=== PATIENT | male | born 1955 | race Caucasian/White ===

== ENCOUNTER → 2016-09-28 | Outpatient (CLI) | payer BC ==
[~2016-09-28] MED LIST: ADULT LOW DOSE81 MG PO; ATIVAN0.5 MG PO; AUGMENTIN TAB875 MG PO; BRILINTA90 MG PO; BUMETANIDE1 MG PO; CORDARONE 200M200 MG PO; DULERA 200 MCG8.8 GM INH; ELIQUIS 5 MG TAB5 MG PO; ENSURE ORIGINA237 ML PO; ENTRESTO PO; FLUOXETINE HCL10 M1 PO; LASIX 40 MG TAB40 MG PO; LEVAQUIN TAB 2250 MG PO; LIPITOR TAB 2020 MG PO; LISINOPRIL5 MG PO; LOPRESSOR 25 MG25 MG PO; METOPROLOL TART25 MG PO; MYCOSTATIN CREA15 GM TOP; NITROSTAT0.4 MG SL; PLAVIX 75 MG TA75 MG PO; POTASSIUM CHLO20 ME1 PO; SPIRIVA HANDIH18 MCG INH; TESSALON PERLE100 MG PO; VISTARIL25 MG PO; ZANTAC150 MG PO; [UNRECOGNIZED DRUG - CODE] PO
== END ==
LOC: LAB 08:33
DX: Z51.81 Encounter for therapeutic drug level monitoring (principal); Z79.01 Long term (current) use of anticoagulants; I25.5 Ischemic cardiomyopathy
CPT/HCPCS: 36415; 85610; 85730

== ENCOUNTER → 2016-10-05 | Outpatient (CLI) | payer BC | LOC: LAB 11:43 | DX: Z51.81 Encounter for therapeutic drug level monitoring (principal); I25.5 Ischemic cardiomyopathy; Z79.01 Long term (current) use of anticoagulants | CPT/HCPCS: 36415; 85610; 85730 ==

== ENCOUNTER → 2016-10-08 | Outpatient (CLI) | payer BC | LOC: LAB 12:17 | DX: Z51.81 Encounter for therapeutic drug level monitoring (principal); I25.5 Ischemic cardiomyopathy; Z79.01 Long term (current) use of anticoagulants | CPT/HCPCS: 36415; 85610; 85730 ==

== ENCOUNTER → 2016-10-12 | Outpatient (CLI) | payer BC | LOC: LAB 12:45 | DX: Z51.81 Encounter for therapeutic drug level monitoring (principal); I25.5 Ischemic cardiomyopathy; Z79.01 Long term (current) use of anticoagulants | CPT/HCPCS: 36415; 85610; 85730 ==

== ENCOUNTER → 2016-10-19 | Outpatient (CLI) | payer BC | LOC: LAB 11:36 | DX: Z51.81 Encounter for therapeutic drug level monitoring (principal); I25.5 Ischemic cardiomyopathy; Z79.01 Long term (current) use of anticoagulants | CPT/HCPCS: 36415; 85610; 85730 ==

== ENCOUNTER → 2016-10-26 | Outpatient (CLI) | payer BC | LOC: LAB 10:19 | DX: Z51.81 Encounter for therapeutic drug level monitoring (principal); I25.5 Ischemic cardiomyopathy; Z79.01 Long term (current) use of anticoagulants | CPT/HCPCS: 36415; 85610; 85730 ==

== ENCOUNTER → 2016-11-02 | Outpatient (CLI) | payer BC | LOC: LAB 11:49 | DX: I25.5 Ischemic cardiomyopathy (principal) | CPT/HCPCS: 36415; 85610; 85730 ==

== ENCOUNTER → 2016-11-09 | Outpatient (CLI) | payer BC | LOC: LAB 11:08 | DX: Z51.81 Encounter for therapeutic drug level monitoring (principal); I25.5 Ischemic cardiomyopathy; Z95.811 Presence of heart assist device; Z79.01 Long term (current) use of anticoagulants | CPT/HCPCS: 36415; 85610; 85730 ==

== ENCOUNTER → 2016-11-16 | Outpatient (CLI) | payer BC | LOC: LAB 11:01 | DX: I25.5 Ischemic cardiomyopathy (principal) | CPT/HCPCS: 36415; 85610; 85730 ==

== ENCOUNTER → 2016-11-23 | Outpatient (CLI) | payer BC | LOC: LAB 10:53 | DX: Z51.81 Encounter for therapeutic drug level monitoring (principal); I25.5 Ischemic cardiomyopathy; Z79.01 Long term (current) use of anticoagulants | CPT/HCPCS: 36415; 85610; 85730 ==

== ENCOUNTER → 2016-11-30 | Outpatient (CLI) | payer BC | LOC: LAB 10:50 | DX: Z51.81 Encounter for therapeutic drug level monitoring (principal); I25.5 Ischemic cardiomyopathy; Z79.01 Long term (current) use of anticoagulants | CPT/HCPCS: 36415; 85610; 85730 ==

== ENCOUNTER → 2016-12-07 | Outpatient (CLI) | payer BC | LOC: LAB 10:10 | DX: Z51.81 Encounter for therapeutic drug level monitoring (principal); Z79.01 Long term (current) use of anticoagulants | CPT/HCPCS: 36415; 85610; 85730 ==

== ENCOUNTER → 2016-12-14 | Outpatient (CLI) | payer BC | LOC: LAB 10:21 | DX: Z51.81 Encounter for therapeutic drug level monitoring (principal); I25.5 Ischemic cardiomyopathy; Z79.01 Long term (current) use of anticoagulants | CPT/HCPCS: 36415; 85610; 85730 ==

== ENCOUNTER → 2016-12-21 | Outpatient (CLI) | payer BC | LOC: LAB 10:46 | DX: Z51.81 Encounter for therapeutic drug level monitoring (principal); I25.5 Ischemic cardiomyopathy; Z79.01 Long term (current) use of anticoagulants | CPT/HCPCS: 36415; 85610; 85730 ==

== ENCOUNTER → 2016-12-28 | Outpatient (CLI) | payer BC | LOC: LAB 11:36 | DX: I25.5 Ischemic cardiomyopathy (principal) | CPT/HCPCS: 36415; 85610; 85730 ==

== ENCOUNTER → 2016-12-31 | Outpatient (CLI) | payer BC | LOC: LAB 12:10 | DX: Z51.81 Encounter for therapeutic drug level monitoring (principal); I25.5 Ischemic cardiomyopathy; Z95.811 Presence of heart assist device; Z79.01 Long term (current) use of anticoagulants | CPT/HCPCS: 36415; 85610; 85730 ==

== ENCOUNTER → 2017-01-04 | Outpatient (CLI) | payer BC | LOC: LAB 11:46 | DX: I25.5 Ischemic cardiomyopathy (principal) | CPT/HCPCS: 36415; 85610; 85730 ==

== ENCOUNTER → 2017-01-11 | Outpatient (CLI) | payer BC | LOC: LAB 09:47 | DX: Z51.81 Encounter for therapeutic drug level monitoring (principal); I25.5 Ischemic cardiomyopathy; Z79.01 Long term (current) use of anticoagulants | CPT/HCPCS: 36415; 85610; 85730 ==

== ENCOUNTER → 2017-01-13 | Outpatient (CLI) | payer BC ==
[2017-01-13 15:11] LABS: BUN/CREATININE RATIO 26 (0-10)
== END ==
LOC: LAB 13:20
PROVIDERS: Internal Medicine
DX: I25.5 Ischemic cardiomyopathy (principal)
CPT/HCPCS: 36415; 80053; 83615

== ENCOUNTER → 2017-01-13 | Outpatient (CLI) | payer BC | LOC: LAB 10:52 | DX: Z51.81 Encounter for therapeutic drug level monitoring (principal); I25.5 Ischemic cardiomyopathy; Z79.01 Long term (current) use of anticoagulants | CPT/HCPCS: 36415; 85610; 85730 ==

== ENCOUNTER → 2017-01-18 | Outpatient (CLI) | payer BC | LOC: LAB 11:53 | DX: Z51.81 Encounter for therapeutic drug level monitoring (principal); I25.5 Ischemic cardiomyopathy; Z79.01 Long term (current) use of anticoagulants | CPT/HCPCS: 85610; 85730 ==

== ENCOUNTER → 2017-01-18 | Outpatient (CLI) | payer BC ==
[2017-01-18 12:28] LABS: BUN/CREATININE RATIO 23 (0-10)
== END ==
LOC: LAB 11:26
PROVIDERS: Internal Medicine
DX: I25.5 Ischemic cardiomyopathy (principal)
CPT/HCPCS: 36415; 80053

== ENCOUNTER → 2021-02-06 | Outpatient (CLI) | payer MEDICARE, BC ==
[~2021-02-06] MED LIST changes: +CALCIUM PO; +CELLCEPT250 MG PO; +MAGOX 400400 MG PO; +MULTIVITAMINS1 EAC1 PO; +OMEPRAZOLE20 M1 PO; +PROGRAF1 MG PO
== END ==
LOC: KOH-I 10:15
DX: Z87.891 Personal history of nicotine dependence (principal)
CPT/HCPCS: 71271

== ENCOUNTER → 2021-02-18 | Outpatient (CLI) | payer MEDICARE, BC | LOC: KOH-I 14:00 | DX: R79.89 Other specified abnormal findings of blood chemistry (principal) | CPT/HCPCS: 76775 ==

== ENCOUNTER → 2021-04-17 | Outpatient (CLI) | payer MEDICARE, BC ==
[2021-04-17 10:44] LABS: RED BLOOD COUNT 5.38 M/UL (4.20-5.50); WHITE BLOOD COUNT 8.5 K/UL (4.5-11.0)
== END ==
LOC: LAB 10:09
PROVIDERS: Internal Medicine
DX: Z48.21 Encounter for aftercare following heart transplant (principal)
CPT/HCPCS: 36415; 80053; 80197; 85025